=== PATIENT | female | born 1960 | race Caucasian/White ===

== ENCOUNTER 2018-04-04 11:19 | Day surgery (SDC) | payer BC ==
[2018-04-04] MEDS ORDERED: FENTAnyl 50 MCG/ML VIAL (14:11)
[2018-04-04] MEDS ORDERED: MIDAZOLAM 1 MG/ML 2 ML INJ ×2 (14:11)
== END 2018-04-04 15:42 | disposition home or self-care (01) ==
LOC: GIL 11:19
DX: Z12.11 Encounter for screening for malignant neoplasm of colon (principal); K64.8 Other hemorrhoids; K63.89 Other specified diseases of intestine
CPT/HCPCS: 45378